=== PATIENT | male | born 1995 | race Caucasian/White ===

== ENCOUNTER 2023-06-21 10:33 | Emergency (ER) | payer OTHER, SELFPAY ==
[2023-06-21] MEDS ORDERED: Ondansetron ODT 4 MG TAB ONE (11:14)
[2023-06-21] MEDS ORDERED: Ibuprofen 800 MG TAB ONE (11:14)
[2023-06-21 11:38] LABS: SARS-CoV-2 NAA Rapid Test Not Detected (NotDetected)
== END 2023-06-21 13:16 | disposition home or self-care (01) ==
LOC: ERS 10:33
DX: J10.1 Influenza due to other identified influenza virus with other respiratory manifestations (principal); R11.0 Nausea; Z20.822 Contact with and (suspected) exposure to COVID-19
CPT/HCPCS: 99283; Q0162